=== PATIENT | male | born 1960 | race Caucasian/White ===

== ENCOUNTER 2017-10-05 08:53 | Day surgery (SDC) | payer OTHER ==
[2017-10-03 12:12] VITALS: BMI 31.6
[~2017-10-05 08:53] MED LIST: LACTATED RINGERS 1,000 ML IV SCH
[2017-10-05 09:08] VITALS: RESP 18; TEMP 98
[2017-10-05] MEDS ORDERED: LIDOCAINE 1% 20 ML VIAL (10MG/ML) FOR IV START INTRADERMA ONE (09:11)
[2017-10-05] MEDS ORDERED: LIDOCAINE 1% INJ 10MG/ML (20 ML MDV) ONE ×2 (09:29→10:59)
[2017-10-05] MEDS ORDERED: PROPOFOL 10 MG/ML 20 ML VIAL IV ONE ×2 (09:29→10:59)
--- NOTE | 2017-10-05 09:33 | P.GSHP ---
History of Present Illness H&P Date: 10/05/17 Chief Complaint: Colon cancer screening Patient here today for colonoscopy. He had a colonoscopy approximately 10-12 years ago that was normal. No bowel related complaints. No family history of colon cancer. Past Medical History Additional Past Medical History / Comment(s): BP slightly elevated, no meds. History of Any Multi-Drug Resistant Organisms: None Reported Past Surgical History: Cholecystectomy Additional Past Surgical History / Comment(s): Colonoscopy Past Anesthesia/Blood Transfusion Reactions: No Reported Reaction Past Psychological History: No Psychological Hx Reported Smoking Status: Former smoker Past Alcohol Use History: Occasional Additional Past Alcohol Use History / Comment(s): Quit smoking at 32 yrs of age. Past Drug Use History: None Reported - Past Family History Mother Family Medical History: Cancer Medications and Allergies Home Medications Medication Instructions Recorded Confirmed Type No Known Home Medications [No 10/03/17 10/05/17 History Known Home Medications] Allergies Allergy/AdvReac Type Severity Reaction Status Date / Time meperidine [From Demerol] Allergy Vomiting Verified 10/05/17 09:03 Surgical - Exam Vital Signs Temp Pulse Resp BP Pulse Ox 98.0 F 98 18 163/107 97 10/05/17 09:07 10/05/17 09:07 10/05/17 09:07 10/05/17 09:07 10/05/17 09:07 Physical exam: General: Well-developed, well-nourished HEENT: Normocephalic, sclerae nonicteric Abdomen: Nontender, nondistended Extremities: No edema Neuro: Alert and oriented Assessment and Plan (1) Colon cancer screening Narrative/Plan: Will proceed with colonoscopy at this time Current Visit: Yes Status: Acute Code(s): Z12.11 - ENCOUNTER FOR SCREENING FOR MALIGNANT NEOPLASM OF COLON SNOMED Code(s): 945261506
--- NOTE | 2017-10-05 09:51 | P.PCN ---
Date of Procedure: 10/05/17 Procedure(s) Performed: PREOPERATIVE DIAGNOSIS: Colon cancer screening POSTOPERATIVE DIAGNOSIS: Sigmoid colon polyp PROCEDURE: Colonoscopy with snare polypectomy ANESTHESIA: MAC SURGEON: Aung Ahumada M.D. SPECIMENS: Polyp ENDOSCOPIC PROCEDURE: The patient was placed on the endoscopy table in the left decubitus position. The Olympus colonoscope was inserted into the anus and passed under direct visualization to the base of the cecum. The appendiceal orifice was visualized. From that point the scope was slowly withdrawn inspecting all surfaces carefully. There were no neoplastic inflammatory or polypoid lesions throughout the cecum, ascending, transverse, and descending colon. In the sigmoid a small polyp was identified and removed using the snare with cautery technique. The remainder of the sigmoid and rectum appeared normal. There is no visible diverticulosis. Digital rectal examination was normal. The patient was taken to the recovery room in stable condition per anesthesia guidelines. RECOMMENDATIONS: Await biopsy results. Anticipate follow-up colonoscopy 5 years.
[2017-10-05 10:12] VITALS: PULSE 58
[2017-10-05 10:14] VITALS: BP 147/87
[2017-10-05] MEDS ORDERED: GLYCOPYRROLATE 0.2 MG/ML 2 ML VIAL ONE (10:59)
[2017-10-05] MEDS ORDERED: fentaNYL (PF) 50 MCG/ML 2 ML AMP ONE (10:59)
== END 2017-10-05 10:30 | disposition home or self-care (01) ==
LOC: ORWHC2ENDO 08:53
PROVIDERS: ATTEND Surgery
DX: Z12.11 Encounter for screening for malignant neoplasm of colon (principal); D12.5 Benign neoplasm of sigmoid colon; Z87.891 Personal history of nicotine dependence; Z90.49 Acquired absence of other specified parts of digestive tract; Z88.8 Allergy status to other drugs, medicaments and biological substances; Z88.5 Allergy status to narcotic agent; Z87.01 Personal history of pneumonia (recurrent)
CPT/HCPCS: 88305; 45385; J2001; J3010; J2704

== ENCOUNTER → 2021-05-03 | Outpatient (CLI) | payer OTHER ==
--- NOTE | 2021-05-03 14:28 | XR ---
Left knee HISTORY: Trauma and pain 3 views the left knee Bone mineralization, joint spaces and alignment are maintained. There is overlying artifact. Some spu rring present at the patellofemoral joint. No definite joint effusion. IMPRESSION: No fracture or dislocation. Mild osteoarthritic change.
== END | disposition home or self-care (01) ==
LOC: RADXRMAIN 12:46
PROVIDERS: ATTEND Internal Medicine
DX: S89.92XA Unspecified injury of left lower leg, initial encounter (principal); M17.12 Unilateral primary osteoarthritis, left knee

== ENCOUNTER → 2021-07-04 | Outpatient (CLI) | payer OTHER ==
--- NOTE | 2021-07-05 01:18 | MR ---
EXAMINATION TYPE: MR knee LT wo con DATE OF EXAM: 07/04/2021 COMPARISON: None HISTORY: Left knee pain S/P fall 2 months ago. Multiplanar multiecho imaging of the left knee without contrast. FINDINGS: The anterior and posterior cruciate ligaments appear intact. The medial and lateral menisci have fair ly normal signal pattern. There is some increased signal in the inferior surface of the posterior hor n lateral meniscus that could be a tear. Medial meniscus appears intact. There is small knee joint effusion. There is very small popliteal cyst. The patella is intact. There is no evidence of a fracture. The collateral ligaments appear intact. There is increased signal in th e subcutaneous fat over the anterior knee. There is mild increased signal in the fat around the muscl es of the lower thigh. IMPRESSION: There is knee joint effusion. Small tear of the posterior horn of the lateral meniscus. No evidence of ligamentous tear. No fracture. Subcutaneous edema. There is also some edema in the deep fat of the lower thigh. This co uld be some residual bruising.
== END | disposition home or self-care (01) ==
LOC: RADMRIMAIN 18:56
PROVIDERS: ATTEND Orthopaedic Surgery
DX: M23.352 Other meniscus derangements, posterior horn of lateral meniscus, left knee (principal)

== ENCOUNTER 2021-08-11 13:07 | Day surgery (SDC) | payer OTHER ==
[2021-08-09 16:12] VITALS: BMI 31.6
--- NOTE | 2021-08-10 20:50 | HP ---
HISTORY AND PHYSICAL DATE OF SURGERY: 08/11/2021 Samuel zayas is a 60-year-old patient seen with progressive left knee pain. We discussed options. He elected to proceed with arthroscopy. Consent was obtained. PAST MEDICAL HISTORY: Hypertension. SURGICAL HISTORY: Noncontributory. DAILY MEDICATIONS: Antihypertensive. ALLERGIES: DEMEROL. SOCIAL HISTORY: He denies tobacco use. PHYSICAL EVALUATION OF THE LEFT KNEE: Range of motion is zero to 130 degrees. Mild effusion. Tenderness, medial joint line. Tenderness, lateral joint line. Positive medial Chris's. Positive lateral Chris's. Ligaments stable. Hip rotation without pain. Distal neurovascular exam is intact. Radiographs of the left knee revealed mild osteoarthritis. MRI left knee revealed lateral meniscal tear and effusion. IMPRESSION: Internal derangement of left knee with lateral meniscal tear. PLAN: Left knee arthroscopy with partial lateral meniscectomy and debridement. MMODL / IJN: [id number] /
[~2021-08-11 13:07] MED LIST changes: +DEXAMETHASONE SOD PHOSPHATE 4 MG/ML 1 ML VIAL IV ONE; +LIDOCAINE 1% (10MG/ML) FOR IV START INTRADERMA PRN; +MIDAZOLAM 2 MG/2 ML VIAL IV PRN
[2021-08-11] MEDS ORDERED: LACTATED RINGERS 1,000 ML IV ONE ×2 (13:28→16:33)
[2021-08-11] MEDS ORDERED: SCOPOLAMINE 1.5MG/72HR PATCH TRANSDERM ONE (13:46)
[2021-08-11] MEDS: ONDANSETRON 4 MG/2 ML VIAL IVP ONE ×2 (13:46→17:01)
[2021-08-11] MEDS ORDERED: fentaNYL (PF) 50 MCG/ML 2 ML AMP ONE (15:27)
[2021-08-11] MEDS ORDERED: PROPOFOL 10 MG/ML 20 ML VIAL IV ONE (15:27)
[2021-08-11] MEDS ORDERED: LIDOCAINE 1% INJ 10MG/ML (20 ML MDV) ONE (15:27)
[2021-08-11] MEDS ORDERED: MIDAZOLAM 2 MG/2 ML VIAL ONE (15:27)
[2021-08-11] MEDS ORDERED: ePHEDrine 50 MG/ML 1 ML VIAL ONE (15:27)
[2021-08-11] MEDS ORDERED: BUPIVACAIN-EPI 0.25%-1:200,000 30 ML VIAL SQ ONE (15:48)
--- NOTE | 2021-08-11 16:15 | P.OP ---
Date of Procedure: 08/11/21 Preoperative Diagnosis: Internal derangement left knee Postoperative Diagnosis: 1. Tear medial and lateral meniscus left knee 2. Grade 2 chondromalacia patella left knee 3. Reactive synovitis medial, lateral and suprapatellar compartments left knee Procedure(s) Performed: 1. Arthroscopic partial medial and lateral meniscectomy left knee 2. Arthroscopic partial synovectomy medial, lateral and suprapatellar compartments left knee 3. Arthroscopic chondroplasty patella left knee Anesthesia: KSENIAA, local Surgeon: Vladimir Vargas Estimated Blood Loss (ml): 7 Pathology: none sent Condition: stable Disposition: PACU Indications for Procedure: 60-year-old patient seen with progressive left knee pain. After having treatment options discussed, he elected to proceed with arthroscopy. Operative Findings: See description of procedure Description of Procedure: Patient was taken to the operative suite. Patient underwent a general anesthetic by the department of anesthesia. Patient was given preoperative antibiotics. The left lower extremity was placed in a well-padded arthroscopic leg smallwood. The left leg was prepped and draped in the normal sterile orthopedic fashion. A lateral parapatellar and suprapatellar incision was made. Trochars were inserted. Arthroscopy was initiated. Suprapatellar pouch revealed diffuse thick reactive synovitis. The patellofemoral joint appeared to articulate congruently. There was grade 2 chondromalacia of the patella with diffuse osteochondral tears present. The scope was guided into the medial gutter. No loose bodies or plica were identified. The scope was then guided into the medial compartment. A medial parapatellar incision was made. Trocar inserted followed by probe. There was a radial tear posterior horn medial meniscus. There were mild grade 1 chondromalacia changes of the tibial plateau. There was thick reactive synovitis anteriorly. I performed a partial medial meniscectomy getting down to stable meniscal tissue. I performed a partial synovectomy. Shaver was removed. The residual meniscus was stable. There was good decompression of the synovitis. Scope and probe were then guided into the intercondylar notch. Cruciates were identified, probed and found to be stable. The scope and probe were then guided into lateral compartment. There was a radial tear involving the posterior horn lateral meniscus. There were some grade 1 chondromalacia changes lateral compartment with no tears. There was some thick reactive synovitis anteriorly. I performed a partial lateral meniscectomy getting down to stable meniscal tissue. I performed a partial synovectomy. Shaver was removed. There was good decompression of synovitis. The residual meniscus was stable. The scope was in guided back into the suprapatellar compartment. I introduced a motorized shaver into the suprrapatellar compartment. I performed a chondroplasty of the patella getting down to stable osteochondral tissue. I performed a partial synovectomy decompressing the reactive synovitis. Shaver was removed. The residual osteochondral surface about the patella was stable. There was good decompression of the synovitis. Instruments were now removed from the joint. The joint was infiltrated with .25% Marcaine. Steri-Strips were applied to the portal sites. Sterile dressings were applied. The patient was placed into a SATURNINO hose. No tourniquet was utilized. The patient was awakened, transferred to a bed and taken to recovery stable satisfactory condition.
[2021-08-11 16:22] VITALS: TEMP 97
[2021-08-11] MEDS: HYDROmorphone 0.5 MG/0.5 ML SYRINGE IVP PRN ×2 (16:52→16:55)
[2021-08-11 17:36] VITALS: BP 139/79; PULSE 59; RESP 16
== END 2021-08-11 17:58 | disposition home or self-care (01) ==
LOC: OR 13:07
PROVIDERS: ATTEND Orthopaedic Surgery
DX: M23.201 Derangement of unspecified lateral meniscus due to old tear or injury, left knee (principal); M23.204 Derangement of unspecified medial meniscus due to old tear or injury, left knee; M22.42 Chondromalacia patellae, left knee; M65.862 Other synovitis and tenosynovitis, left lower leg; I10 Essential (primary) hypertension; Z79.899 Other long term (current) drug therapy; Z88.5 Allergy status to narcotic agent; Z90.49 Acquired absence of other specified parts of digestive tract
CPT/HCPCS: 29880; J2250; J1100; J0690; J2405; J2001; J3010; J2704; J1170

== ENCOUNTER 2024-10-16 09:28 | Emergency (ER) | payer OTHER ==
[2024-10-16 09:34] VITALS: TEMP 97.7
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
[2024-10-16] MEDS: ETODOLAC 400 MG TAB PO STA (10:21)
[2024-10-16] MEDS: CYCLOBENZAPRINE 10 MG TAB PO STA (10:22)
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
[2024-10-16] MEDS: ACET/COD 300 MG/30 MG STARTER PACK 6 TAB BTL PO STA (11:31)
[2024-10-16 11:36] VITALS: BP 167/79; PULSE 81; RESP 16
== END 2024-10-16 11:36 | disposition home or self-care (01) ==
LOC: EC 09:28
DX: S16.1XXA Strain of muscle, fascia and tendon at neck level, initial encounter (principal); R51.9 Headache, unspecified; Z87.891 Personal history of nicotine dependence; Z88.5 Allergy status to narcotic agent; V73.5XXA Driver of bus injured in collision with car, pick-up truck or van in traffic accident, initial encounter; Y92.410 Unspecified street and highway as the place of occurrence of the external cause
CPT/HCPCS: 70450; 72125; 99284